=== PATIENT | male | born 2000 | race African-American/Black ===

== ENCOUNTER 2019-02-25 22:15 | Emergency (ER) | payer MEDICAID ==
[~2019-02-25] VITALS: Ht 182.9 cm; Wt 77.2 kg
--- NOTE | 2019-02-25 22:46 | NUR ---
DR RAWLS BS FOR EXAM. PT SPEAKING VERY QUIETLY. PT A&OX4, RESP EVEN & UNLABORED, SPEECH CLEAR, SKIN WNL. C/O GENERALIZED ABD PAIN - STARTED 2 WKS AGO - +NAUSEA, DIARRHEA & CONSTIPATION. LAST BM: TODAY "HARD TO COME OUT, BUT WHEN IT DID IT CAME" "SLUSHY" NO MEDS TAKEN FOR SX. C/O INTERMITTENT PETERSON. LAST ORAL INTAKE: THIS MORNING - [place].
[2019-02-25 23:07] LABS: BASOPHILS # (AUTO) 0.02 x10^3/uL (0-0.3); BASOPHILS % (AUTO) 1 % (0-1); EOSINOPHILS % (AUTO) 3 % (1-7); LYMPHOCYTES # (AUTO) 1.49 x10^3/uL (1-6.1); LYMPHOCYTES % (AUTO) 41 % (22-44); MD NO; MEAN CORPUSCULAR HEMOGLOBIN 29.7 pg (27.5-34.5); MEAN CORPUSCULAR HGB CONC 33.7 g/dL (33.2-36.2); MEAN CORPUSCULAR VOLUME 88.3 fL (81-97); MEAN PLATELET VOLUME 9.1 fL (7.4-10.4); MONOCYTES # (AUTO) 0.34 x10^3/uL (0-1.4); MONOCYTES % (AUTO) 9 % (2-9); NEUTROPHILS # (AUTO) 1.65 x10^3/uL (1.8-8.0); NEUTROPHILS % (AUTO) 46 % (42-75); PLATELET COUNT 255 x10^3/uL (130-400); RED BLOOD COUNT 5.51 x10^6/uL (4.38-5.82); RED CELL DISTRIBUTION WIDTH 13.4 % (9.4-14.8)
[2019-02-25 23:19] LABS: ALANINE AMINOTRANSFERASE 27 U/L (12-78); ALBUMIN 4.2 g/dL (3.4-5.0); ANION GAP 4 mmol/L (5-15); CHLORIDE 107 mmol/L (98-107); CREATININE 1.04 mg/dL (0.7-1.3)
[2019-02-25 23:21] LABS: ALKALINE PHOSPHATASE 53 U/L (45-117); BILIRUBIN,TOTAL 0.4 mg/dL (0.2-1.0); CREATINE KINASE, TOTAL 433 U/L (39-308); TOTAL PROTEIN 7.9 g/dL (6.4-8.2)
--- NOTE | 2019-02-25 23:27 | NUR ---
PT REPORT TO [facility] [facility]. PT CARE TRANSFERRED.
[2019-02-25 23:30] LABS: MICROSCOPIC AUTO
[2019-02-25 23:35] LABS: CULTURE INDICATED? YES
[2019-02-25 23:40] LABS: AMPHETAMINE SCREEN, URINE Negative (Negative); BARBITURATE SCREEN, URINE Negative (Negative); BENZODIAZEPINE SCREEN, URINE Negative (Negative); CANNABINOID SCREEN, URINE Positive (Negative); COCAINE SCREEN, URINE Negative (Negative); METHADONE SCREEN, URINE Negative (Negative); OPIATE SCREEN, URINE Negative (Negative)
[2019-02-25 23:59] VITALS: BP 119/74
== END 2019-02-26 00:14 | disposition home or self-care (01) ==
LOC: ED 23:59
DX: M79.10 Myalgia, unspecified site (principal); F12.10 Cannabis abuse, uncomplicated; K92.1 Melena; R11.2 Nausea with vomiting, unspecified; R51 Headache; R30.0 Dysuria; R39.198 Other difficulties with micturition
CPT/HCPCS: 36415; 71045; 80053; 80307; 81001; 82550; 83690; 83735; 85025; 87086; 99284